=== PATIENT | female | born 1970 | race Caucasian/White ===

== ENCOUNTER 2018-08-25 14:04 | Emergency (ER) | payer BC ==
[~2018-08-25] VITALS: Ht 160 cm; Wt 94.1 kg
[~2018-08-25 14:04] MED LIST: AMOXICILLIN 8751 TAB PO; ANTIVERT 25MG25 MG PO; BENADRYL25 M2 PO; CEFTIN250 M1 PO; COLESTID 1GM1 G PO; DIFLUCAN 100MG100 MG PO; DIFLUCAN150 MG PO; FLAGYL500 MG PO; IBU-8800 MG PO; METROGEL GEL45 GM TP; NO HOME MEDICATIONS; PREDNISONE20 MG PO; PROBIOTIC FORMU1 CAP PO; PROTONIX PO; TYLENOL 500MG500 MG PO
[2018-08-25 14:15] VITALS: TEMP 97.7
[2018-08-25 15:23] LABS: BASO # 0.1 (0.0-0.2); BASO % 0.5 % (0.0-2.0); EOS # 0.2 (0.0-0.7); EOS % 1.7 % (0-4.0); GRAN # 6.9 (1.4-6.5); GRAN % 73.3 % (42.2-75.2); HEMATOCRIT 45.1 % (37.0-47.0); HEMOGLOBIN 15.8 g/dl (12.5-16.0); LYMPH # 1.7 (1.2-3.4); MEAN CELL VOLUME 88 fl (80.0-100.0); MEAN CORPUSCULAR HEMOGLOBIN 31 pg (27.0-31.0); MEAN CORPUSCULAR HGB CONC 35 g/dl (33.0-37.0); MEAN PLATELET VOLUME 9.7 fl (7.4-10.4); MONO # 0.6 (0.1-0.6); PLATELET COUNT 246 K/mm3 (130-400); RED BLOOD COUNT 5.11 M/mm3 (4.10-5.30); REDCELL DISTRIBUTION WIDTH-CV 12.2 % (11.5-14.5)
[2018-08-25 15:35] LABS: ALBUMIN 4.8 gm/dL (3.5-5.0); BILIRUBIN,TOTAL 1.1 mg/dL (0.0-1.0); CALCIUM 9.4 mg/dL (8.4-10.2); CREATININE, serum 0.64 mg/dL (0.52-1.25); TOTAL PROTEIN 8.3 gm/dL (6.4-8.2)
[2018-08-25 15:51] LABS: COLLECTION METHOD CLEAN CATCH
[2018-08-25 16:03] LABS: PH 7 (5-8); SQUAMOUS EPITHELIAL None Seen /hpf; URINE APPEARANCE Clear; URINE BACTERIA None Seen /hpf; URINE BILIRUBIN Negative (NEGATIVE); URINE BLOOD 1+ (NEGATIVE); URINE COLOR Colorless; URINE GLUCOSE Negative (NEGATIVE); URINE KETONE Negative (NEGATIVE); URINE LEUKOCYTE ESTERASE Negative (NEGATIVE); URINE NITRATE Negative (NEGATIVE); URINE PROTEIN(semi-quant) Negative (NEGATIVE); URINE RBC None Seen /hpf; URINE UROBILINOGEN Negative (NEGATIVE)
[2018-08-25 16:15] VITALS: BP 150/99; PULSE 94
== END 2018-08-25 16:45 | disposition home or self-care (01) ==
LOC: COL.ER 14:04
PROVIDERS: Physician Assistant
DX: I10 Essential (primary) hypertension (principal); F41.9 Anxiety disorder, unspecified; Z90.49 Acquired absence of other specified parts of digestive tract

== ENCOUNTER 2019-12-30 00:29 | Emergency (ER) | payer BC ==
[~2019-12-30] VITALS: Ht 160 cm; Wt 94.1 kg
[2019-12-30 00:32] VITALS: PULSE 110; TEMP 98.6
[2019-12-30 01:08] VITALS: BP 140/96
== END 2019-12-30 01:08 | disposition home or self-care (01) ==
LOC: COL.ER 00:29
DX: J35.8 Other chronic diseases of tonsils and adenoids (principal)

== ENCOUNTER 2022-07-06 14:24 | Emergency (ER) | payer BC ==
[~2022-07-06] VITALS: Ht 162.6 cm; Wt 94.5 kg
[2022-07-06 15:18] VITALS: TEMP 98
[2022-07-06 17:48] LABS: BASO # 0.1 K/mm3 (0.0-0.2); BASO % 0.8 % (0.0-2.0); EOS # 0.2 K/mm3 (0.0-0.7); EOS % 1.8 % (0.0-4.0); GRAN # 8.4 K/mm3 (1.4-6.5); GRAN % 72.1 % (42.2-75.2); HEMATOCRIT 43.9 % (37.0-47.0); HEMOGLOBIN 15.8 g/dl (12.5-16.0); LYMPH # 1.9 K/mm3 (1.2-3.4); LYMPH % 15.9 % (20.0-51.0); MEAN CELL VOLUME 86 fl (80.0-100.0); MEAN CORPUSCULAR HEMOGLOBIN 31 pg (27-31); MEAN CORPUSCULAR HGB CONC 36 g/dl (33.0-37.0); MEAN PLATELET VOLUME 9.6 fl (7.4-10.4); MONO % 8.7 % (1.7-9.3); PLATELET COUNT 308 K/mm3 (130-400); RED BLOOD COUNT 5.08 M/mm3 (4.10-5.30); REDCELL DISTRIBUTION WIDTH-CV 12.5 % (11.5-14.5)
[2022-07-06 18:07] LABS: ALANINE AMINOTRANSFERASE 44 U/L (0-55); ALBUMIN 4.7 gm/dL (3.5-5.0); ALKALINE PHOSPHATASE 48 U/L (40-150); ANION GAP 12 mmol/L (7-16); AST,SGOT 29 U/L (5-34); BILIRUBIN,TOTAL 0.7 mg/dL (0.2-1.2); BLOOD UREA NITROGEN 8 mg/dL (10-20); CALCIUM 9.9 mg/dL (8.4-10.2); CARBON DIOXIDE 20 mmol/L (22-29); CHLORIDE 106 mmol/L (98-107); CREATININE, serum 0.76 mg/dL (0.57-1.11); GLUCOSE 116 mg/dL (70-99); SODIUM 138 mmol/L (136-145); TOTAL PROTEIN 8.1 gm/dL (6.2-8.1)
[2022-07-06 18:16] LABS: TROPONIN-I < 0.010 ng/mL (0.00-0.033)
[2022-07-06 18:51] LABS: TSH w REFLEX 2.071 uIU/mL (0.350-4.940)
[2022-07-06] MEDS ORDERED: TOPROL XL 25MG25 MG PO (19:54)
[2022-07-06 21:02] VITALS: BP 141/95; PULSE 97
== END 2022-07-06 21:04 | disposition home or self-care (01) ==
LOC: COL.ER 14:24
PROVIDERS: Physician Assistant
DX: I16.0 Hypertensive urgency (principal); F41.9 Anxiety disorder, unspecified; Z28.310 Unvaccinated for COVID-19
CPT/HCPCS: J2060; J7030